=== PATIENT | female | born 1945 | race Caucasian/White ===

== ENCOUNTER 2022-04-29 21:45 | Emergency (ER) | payer OTHER ==
[~2022-04-29] VITALS: Ht 165.1 cm; Wt 54.4 kg
[2022-04-30 00:50] LABS: BASOPHILS # (AUTO) 0.1 K/uL (0.0-0.2); BASOPHILS % (AUTO) 0.5 % (0.0-2.0); EOSINOPHILS % (AUTO) 0.1 % (0.0-6.0); HEMATOCRIT 37 % (33-45); HEMOGLOBIN 12.4 g/dL (11.5-14.8); LYMPHOCYTES % (AUTO) 8.2 % (20.0-44.0); MEAN CORPUSCULAR HGB CONC 33 g/dl (31.0-36.0); MEAN CORPUSCULAR VOLUME 98 fL (82-100); MONOCYTES # (AUTO) 1.1 K/uL (0.1-1.30); MONOCYTES % (AUTO) 8.4 % (2.0-12.0); NEUTROPHILS # (AUTO) 10.5 K/uL (1.8-8.9); NEUTROPHILS % (AUTO) 82.8 % (43.0-81.0); PLATELET COUNT (AUTO) 418 K/uL (150-450); RED BLOOD CELL COUNT(AUTO) 3.82 MIL/uL (4.0-5.2); WHITE BLOOD COUNT (AUTO) 12.7 K/uL (4.3-11.0)
[2022-04-30 00:59] LABS: CALCIUM, SERUM 9.4 mg/dL (8.5-10.1); CARBON DIOXIDE 25 mmol/L (21-32); CHLORIDE 102 mmol/L (98-107); CREATININE 0.8 mg/dL (0.6-1.3); GLUCOSE 114 mg/dL (74-106); POTASSIUM 3.3 mmol/L (3.5-5.1); SODIUM SERUM 136 mmol/L (136-145); UREA NITROGEN, BLOOD 13 mg/dL (7-18)
[2022-04-30] MEDS ORDERED: ACETAMINOPHEN ES 500 MG TABLET ONE (01:22)
[2022-04-30] MEDS ORDERED: ACETAMINOPHEN 325 MG TABLET PO ONE (01:30)
[2022-04-30 06:19] VITALS: BP 108/68
== END 2022-04-30 06:20 ==
LOC: ER 22:03
DX: S72.141A Displaced intertrochanteric fracture of right femur, initial encounter for closed fracture (principal); S42.291A Other displaced fracture of upper end of right humerus, initial encounter for closed fracture; S00.83XA Contusion of other part of head, initial encounter; Z20.822 Contact with and (suspected) exposure to COVID-19; Z88.8 Allergy status to other drugs, medicaments and biological substances; Z60.2 Problems related to living alone; W01.0XXA Fall on same level from slipping, tripping and stumbling without subsequent striking against object, initial encounter; Y93.89 Activity, other specified; Y92.89 Other specified places as the place of occurrence of the external cause; Y99.8 Other external cause status
CPT/HCPCS: 99291; 72125; 73552; 73030; 70450; 70486; 73700; 87426; 93005; 71045; 85025; 80048; 36415; 85730; C9803